=== PATIENT | male | born 1970 | race Caucasian/White ===

== ENCOUNTER 2018-11-27 22:47 | Emergency (ER) | payer MEDICAID ==
[~2018-11-27] VITALS: Ht 182.9 cm; Wt 104.3 kg
[2018-11-27 23:07] VITALS: BP_SYST 122
--- NOTE | 2018-11-27 23:13 | NUR ---
Patient triaged and placed in waiting room. VSS and patient appears in no acute distress at this time. Accompanied by , awaiting available bed, and MD notified of need for MSE.
== END 2018-11-28 02:05 | disposition left against medical advice (07) ==
LOC: SED 22:47
DX: M79.621 Pain in right upper arm (principal); Z53.21 Procedure and treatment not carried out due to patient leaving prior to being seen by health care provider